=== PATIENT | female | born 2000 | race Two or more races ===

== ENCOUNTER 2020-06-22 14:53 | Outpatient (CLI) | payer SELFPAY ==
[2020-06-22 15:50] LABS: APPEARANCE,URINE SLIGHTLY-CLOUDY; BILIRUBIN,URINE NEGATIVE (NEGATIVE); COLOR,URINE YELLOW; GLUCOSE, URINE NEGATIVE (NEGATIVE); KETONES,URINE NEGATIVE (NEGATIVE); LEUKOCYTE ESTERASE,URINE NEGATIVE (NEGATIVE); NITRITE,URINE NEGATIVE (NEGATIVE); PROTEIN,URINE NEGATIVE (NEGATIVE); URINE SPECIFIC GRAVITY 1.004; UROBILINOGEN,URINE NEGATIVE mg/dL (<2.0)
[2020-06-22 16:06] LABS: URINE AMPHETAMINES SCREEN NEGATIVE; URINE BARBITURATES SCREEN NEGATIVE; URINE BENZODIAZEPINES SCREEN NEGATIVE; URINE COCAINE SCREEN NEGATIVE; URINE MARIJUANA (THC) SCREEN NEGATIVE; URINE METHADONE SCREEN NEGATIVE; URINE PHENCYCLIDINE SCREEN NEGATIVE
--- NOTE | 2020-06-22 16:25 | Non Stress Test Report ---
Non Stress Test Datetime Report Generated by CPN: 06/22/2020 16:24 DEMOGRAPHIC EGA NST: 39.0 INDICATION Indication for Study (NST) Other: ctx MONITORING Monitor Explained: Monitor Explained; Test Explained; Patient Verbalized Understanding Time on Monitor: 06/22/2020 15:25 Time off Monitor: 06/22/2020 16:23 NST Duration: 58 NST INTERVENTIONS NST Interventions: Reposition Patient Physician Notified NST: Dr. Austen BABY A: [id number] BABY A Movement : Present Contraction Frequency : irregular FHR Baseline : 145 Accelerations : 15X15 Decelerations : None Variability : Moderate 6-25bpm NST Review: Meets Criteria for Reactive NST NST Review and Verified By : Zenaida Banks RN NST Results: Reactive NST REPORT Report Trigger: Send Report
[2020-06-22] MEDS ORDERED: HYDROXYZINE PAMOATE 50 MG CAPSULE PO ONE (16:43)
[2020-06-22] MEDS ORDERED: HYDROXYZINE PAMOATE 50 MG CAPSULE ONE (16:45)
== END 2020-06-22 17:00 | disposition home or self-care (01) ==
LOC: EDSTATUS 15:02 → LC 15:07
PROVIDERS: ATTEND Obstetrics & Gynecology
DX: O47.1 False labor at or after 37 completed weeks of gestation (principal); Z3A.39 39 weeks gestation of pregnancy
CPT/HCPCS: 59025; 80307; 81005

== ENCOUNTER 2020-06-23 01:43 | Inpatient (IN) | payer SELFPAY ==
[2020-06-23 02:33] LABS: APPEARANCE,URINE CLEAR; BILIRUBIN,URINE NEGATIVE (NEGATIVE); COLOR,URINE STRAW; GLUCOSE, URINE NEGATIVE (NEGATIVE); KETONES,URINE NEGATIVE (NEGATIVE); LEUKOCYTE ESTERASE,URINE NEGATIVE (NEGATIVE); NITRITE,URINE NEGATIVE (NEGATIVE); PROTEIN,URINE 30 mg/dL (NEGATIVE); URINE SPECIFIC GRAVITY 1.006; UROBILINOGEN,URINE NEGATIVE mg/dL (<2.0)
[2020-06-23 02:48] LABS: URINE AMPHETAMINES SCREEN NEGATIVE; URINE BARBITURATES SCREEN NEGATIVE; URINE BENZODIAZEPINES SCREEN NEGATIVE; URINE COCAINE SCREEN NEGATIVE; URINE MARIJUANA (THC) SCREEN NEGATIVE; URINE METHADONE SCREEN NEGATIVE; URINE PHENCYCLIDINE SCREEN NEGATIVE
[2020-06-23] MEDS ORDERED: MISOPROSTOL 0.2 MG TABLET ONE (03:23)
[2020-06-23] MEDS ORDERED: EPHEDRINE SULFATE INJ 50 MG/1 ML AMPULE ONE (03:23)
[2020-06-23] MEDS ORDERED: OXYTOCIN 10 UNIT/ML VIAL ONE (03:23)
[2020-06-23] MEDS ORDERED: OXYTOCIN/0.9 % SODIUM CHLORIDE 30 UNIT/500 ML RTUINJ ONE ×2 (03:24→10:37)
[2020-06-23] MEDS ORDERED: FENTANYL/BUPIVACAINE/NS/PF 300 MCG/150 ML RTUINJ EPI ONE (03:24)
[2020-06-23] MEDS ORDERED: LIDOCAINE 1% INJ-PF (10 MG/ML) 30 ML SDV ONE (03:24)
[2020-06-23] MEDS ORDERED: ROPIVACAINE HCL 0.2% INJ/PF (2 MG/ML) 20 ML SDV ONE (03:24)
[2020-06-23] MEDS: RINGERS SOLUTION,LACTATED 1,000 ML IV PRN ×2 (03:30→04:17)
[2020-06-23 03:31] LABS: ABSOLUTE LYMPHOCYTES (AUTO) 1.1 10^3/uL (0.5-4.7); ABSOLUTE MONOCYTES (AUTO) 0.6 10^3/uL (0.1-1.4); ABSOLUTE NEUT (AUTO) 10.7 10^3/uL (1.7-8.2); BASOPHILS % (AUTO) 0.2 % (0-2); EOSINOPHILS % (AUTO) 0.1 % (0-6); HEMATOCRIT 38.1 % (36.0-47.0); HEMOGLOBIN 12.8 g/dL (12.0-15.5); LYMPHOCYTES % (AUTO) 8.9 % (13-45); MEAN CORPUSCULAR HEMOGLOBIN 29.2 pg (27.0-33.4); MEAN CORPUSCULAR HGB CONC 33.6 g/dL (32.0-36.0); MEAN CORPUSCULAR VOLUME 87 fl (80-97); PLATELET COUNT 204 10^3/uL (150-450); RED BLOOD COUNT 4.37 10^6/uL (3.72-5.28); RED CELL DISTRIBUTION WIDTH 14.8 % (11.5-14.0); SEGMENTED NEUTROPHILS % (AUTO) 85.8 % (42-78); TOTAL CELLS COUNTED % (AUTO) 100 %; WHITE BLOOD COUNT 12.5 10^3/uL (4.0-10.5)
--- NOTE | 2020-06-23 07:05 | Admission Physical ---
Datetime Report Generated by CPN: 06/23/2020 07:05 CURRENT ADMISSION Chief Complaint: Uterine Contractions Indication for Induction: Not Applicable Admit Impression : Term, Intrauterine ; Active Labor Admit Plan: Admit to Unit; Initiate Labor Protocol ALLERGIES Medication Allergies: No Medication Allergies: No Known Allergies (06/23/2020) Latex: No Latex Allergies Food Allergies: n/a Environmental Allergies: n/a OBSTETRICAL HISTORY EDC: 06/29/2020 00:00 : 1 Para: 0 Term: 0 : 0 SAB: 0 IAB: 0 Ectopic: 0 Livin Cesareans: 0 VBACs: 0 Multiple Births: 0 Gestational Diabetes: No Rh Sensitization: No Incompetent Cervix: No RASHAD: No Infertility: No ART Treatment: No Uterine Anomaly: No IUGR: No Hx Previous C/S: No Macrosomia: No Hx Loss/Stillborn: No PIH: No Hx : No Placenta Previa/Abruption: No Depression/PP Depression: No PTL/PROM: No Post Hemorrhage: No Current Procedures: Ultrasound Obstetrical History Comments: G1- current SEE RECORDS Alcohol: No Marijuana : No Cocaine: No Other Illicit Drugs: No Cigarettes: Never Smoker. 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 Heart Disease: No Hosp/Surgery: No Autoimmune Disorder: No Anesthetic Complications: No Kidney Disease: No Abnormal Pap Smear: No Neuro/Epilepsy: No Psychiatric Disorders: No Other Medical Diseases: No Hepatitis/Liver Disease: No Significant Family History: No Varicosities/Phlebitis: No Trauma/Violence : No Thyroid Dysfunction: No INFECTIOUS HISTORY Gonorrhea: No Genital Herpes: No Chlamydia: No Tuberculosis: No Syphilis: No Hepatitis: No HIV/AIDS Exposure: No HPV: No PHYSICAL EXAM General: Normal HEENT: Normal Neurologic: Normal Thyroid: Normal Heart: Normal Lungs: Normal Breast: Normal Back: Normal Abdomen: Normal Genitourinary Exam: Normal Extremities: Normal DTRs: Normal Pelvic Type: Adequate Vital Signs: Reviewed; Within Normal Limits VAGINAL EXAM Dilatation: 8 Effacement: 90 Station: -1 MEMBRANES Pooling: Negative Membranes: Intact FETUS A EGA: 39.1 Monitoring: External US FHR- Baseline: 150 Variability: Moderate 6-25bpm Accelerations: 15X15 Decelerations: None FHR Category: Category I Estimated Weight (gm): 3500 Presentation: Vertex PLANS FOR LABOR AND DELIVERY Labor and Delivery: None Pain Management: Natural; Medications; Epidural Other Pain Management Plans: pt states that she doesn't know yet Feeding Preference: Both Benefit of Breast Feed Discussed: Yes Circumcision: N/A INFORMED CONSENT Signature: with User ID: [email or web address]
[2020-06-23] MEDS ORDERED: AMPICILLIN SOD/SULBACTAM 3 GM VIAL ONE (09:33)
[2020-06-23] MEDS ORDERED: TRANEXAMIC ACID INJ/PF 1,000 MG/10 ML SDV ONE (09:44)
[2020-06-23] MEDS ORDERED: DIPH/PERTUSS(ACELL)/TETANUS VAC/PF 0.5 ML SYR (>=10YO) IM PRN (09:55)
[2020-06-23] MEDS ORDERED: BENZOCAINE/MENTHOL AEROSOL SPRAY 56 ML TOP PRN (09:55)
[2020-06-23] MEDS ORDERED: MAGNESIUM HYDROXIDE SUSP 30 ML UDCUP PO PRN (09:55)
[2020-06-23] MEDS ORDERED: ACETAMINOPHEN WITH CODEINE #3 TABLET PO PRN ×2 (09:55)
[2020-06-23] MEDS ORDERED: DIBUCAINE 1% OINTMENT 28 GM TP PRN (09:55)
[2020-06-23] MEDS ORDERED: PSEUDOEPHEDRINE HCL 30 MG TABLET PO PRN (09:55)
[2020-06-23] MEDS ORDERED: ACETAMINOPHEN 650 MG SUPP.RECT PR PRN (09:55)
[2020-06-23] MEDS ORDERED: PROMETHAZINE HCL 25 MG TABLET PO PRN (09:55)
[2020-06-23] MEDS ORDERED: PROMETHAZINE HCL INJ 25 MG/1 ML VIAL IV PRN (09:55)
[2020-06-23] MEDS ORDERED: PROMETHAZINE HCL 25 MG SUPP.RECT PR PRN (09:55)
[2020-06-23] MEDS ORDERED: MEASLES,MUMPS&RUBELLA VACC/PF 0.5 ML VIAL SUBCUT PRN (09:55)
[2020-06-23] MEDS ORDERED: DIPHENHYDRAMINE HCL 25 MG CAPSULE PO PRN (09:55)
[2020-06-23] MEDS ORDERED: ACETAMINOPHEN 325 MG TABLET PO PRN (09:55)
[2020-06-23] MEDS ORDERED: ZOLPIDEM TARTRATE 5 MG TABLET PO PRN (09:55)
[2020-06-23] MEDS ORDERED: OXYTOCIN/0.9 % SODIUM CHLORIDE 30 UNIT/500 ML RTUINJ IV PRN (09:55)
[2020-06-23] MEDS ORDERED: NA PHOS,M-B/NA PHOS,DI-BA (ADULT) 133 ML ENEMA PR PRN (09:55)
[2020-06-23] MEDS ORDERED: GLYCERIN/WITCH HAZEL LEAF 1 EACH MED..WIPE TP PRN (09:55)
[2020-06-23] MEDS ORDERED: AMPICILLIN SOD/SULBACTAM 3 GM VIAL IV SCH (10:00)
[2020-06-23] MEDS ORDERED: TRANEXAMIC ACID INJ/PF 1,000 MG/10 ML SDV IV ONE (10:00)
[2020-06-23] MEDS ORDERED: IBUPROFEN 800 MG TABLET ONE (10:29)
[2020-06-23] MEDS: FAMOTIDINE 20 MG TABLET PO SCH ×2 (11:03→21:42)
--- NOTE | 2020-06-23 11:27 | Birth Certificate Data ---
Cert Data Datetime Report Generated by CPN: 06/23/2020 11:26 CERTIFICATE DATA Delivery Provider: Marry Boyce MD (06/22/2020 15:05:Helene Banks RN) 47b. Date of First Visit: 11/30/2019 00:00 (06/22/2020 15:05:Sarita Baker RN) 47c. Date of Last Visit: 06/14/2020 00:00 (06/22/2020 15:05:Sartia Baker RN) 47d. Number of Visits: 10 (06/22/2020 15:05:Sarita Baker RN) 48a. Number of Prev Live Births: 0 (06/22/2020 15:05:Sarita Baker RN) 48b. Now Livin (06/22/2020 15:05:Sarita Baker RN) 48c. Live Births Now : 0 (06/22/2020 15:05:QS system process) 48e. Losses: 0 (06/22/2020 15:05:Sarita Baker RN) RISK FACTORS IN THIS 49a. Diabetes: No (06/22/2020 15:05:Helene Banks RN) 49b. Hypertension: Yes (06/22/2020 15:05:Helene Banks RN) 49c. Previous Births: 0 (06/22/2020 15:05:Sarita Baker RN) 49d. Stillborns: No (06/22/2020 15:05:Sarita Baker RN) 49d. IUGR: No (06/22/2020 15:05:Helene Banks RN) 49e. Infertility Treatment: No (06/22/2020 15:05:Helene Banks RN) 49f. Previous Cesareans: 0 (06/22/2020 15:05:Sarita Baker RN) Mother's Height 50b. Height Inches: 63 (06/23/2020 03:28:QS system process) Mother's Weight 51b. Weight at Delivery (lbs): 154 (06/23/2020 03:28:QS system process) 52. Dt Last Normal Menses Began: 09/23/2019 00:00 (06/22/2020 15:05:Sarita Baker RN) Infections Present/Treated 53a. Gonorrhea: No (06/22/2020 15:05:Helene Banks RN) Results this Hospital Visit : Negative (06/22/2020 15:05:Sarita Baker RN) 53b. Syphilis: No (06/22/2020 15:05:Helene Banks RN) 53c. Chlamydia: No (06/22/2020 15:05:Helene Banks RN) Results this Hospital Visit: Negative (06/22/2020 15:05:Sarita Baker RN) 53d. Hepatitis B: No (06/22/2020 15:05:Helene Banks RN) Results this Hospital Visit: Negative (06/22/2020 15:05:Sarita Baker RN) 53e. Hepatitis C: Negative (06/22/2020 15:05:Sarita Baker RN) 53h. Mother Tested for HBsAG: Yes (06/22/2020 15:05:Sarita Baker RN) 53i. Date Tested: 01/15/2020 00:00 (06/22/2020 15:05:Sarita Baker RN) 53j. Test Result: Negative (06/22/2020 15:05:Sarita Baker RN) Obstetric Procedures 54a, b, c. Obstetric Procedures: Ultrasound (06/22/2020 15:05:Sarita Baker RN) Cigarette Smoking Cigarette Smoking: Never Smoker. [id number] (06/22/2020 15:05:Sarita Baker RN) Onset of Labor 56a. PROM >12 Hrs: 2.28 (06/22/2020 15:05:QS system process) 56b. Precipitous Labor <3 Hrs: 18 (06/22/2020 15:05:QS system process) 56c. Prolonged Labor > 20 Hrs: 18 (06/22/2020 15:05:QS system process) 57a. Induction of Labor: N/A (06/22/2020 15:05:Helene Banks RN) 57c. Non-Vertex Presentation A: Vertex (06/22/2020 15:05:Helene Banks RN) 57d. Steroids - Lung Mat: None (06/22/2020 15:05:Helene Banks RN) 57d. Steroids - Lung Mat: Not Applicable (06/22/2020 15:05:Helene Banks RN) 57g. Moderate/Heavy Meconium: Moderate Meconium (06/23/2020 07:09:Heleen Banks RN) 57h. Intolerance of Labor: N/A (06/22/2020 15:05:Sarita Baker RN) : N/A (06/22/2020 15:05:Sarita Baker RN) 57i. Epidural/Spinal Anesthesia: Epidural (06/22/2020 15:05:Helene Banks RN) Method of Delivery 58a. Forceps - Unsuccessful A: N/A (06/22/2020 15:05:Helene Banks RN) 58b. Vacuum - Unsuccessful A: N/A (06/22/2020 15:05:Helene Banks RN) 58c. Presentation at 58c. Presentation at - A : Vertex (06/22/2020 15:05:Helene Banks RN) 58c. Presentation at - A : N/A (06/22/2020 15:05:Helene Banks RN) 58c. Presentation at - A : Cephalic (06/22/2020 16:36:Helene Banks RN) Final Route and Method of Del 58d. Baby A Route/Delivery: Vaginal (06/22/2020 15:05:Sarita Baker RN) 58e. Trial of Labor Attempted: No (06/22/2020 15:05:Helene Banks RN) 58e. Trial of Labor Attempted A: N/A (06/22/2020 15:05:Helene Banks RN) 58e. Trial of Labor Attempted B: N/A (06/22/2020 15:05:Helene Banks RN) Maternal Morbidity 59b. 3rd or 4th Degree Lacs: Perineal; Vaginal (06/22/2020 15:05:Helene Banks RN) 59b. 3rd or 4th Degree Lacs: Second Degree (06/22/2020 15:05:Helene Banks RN) Birthweight Baby A: 3299 (06/22/2020 15:05:Helene Banks RN) 60a. Pounds : 7 (06/22/2020 15:05:QS system process) 60b. Ounces: 4 (06/22/2020 15:05:QS system process) 61. GA at Delivery Baby A: 39.1 (06/22/2020 15:05:Helene Banks RN) : Full Term- 39- 40.6 Weeks (06/22/2020 15:05:QS system process) 62a. 5 Minute Baby A: 9 (06/22/2020 15:05:QS system process)
--- NOTE | 2020-06-23 11:27 | Delivery Summary ---
Del Sum A-C Datetime Report Generated by CPN: 06/23/2020 11:26 DELIVERY PERSONNEL DELIVERY PERSONNEL: [id number] Delivery Doctor:: Marry Boyce MD Labor and Delivery Nurse:: Helene Banks RN Nursery Nurse:: Thuy Ascencio RN Manager Search/WEAVER APPRENTICE: [facility], FLATWORK ASSEMBLER MATERNAL INFORMATION Delivery Anesthesia: Epidural Medications After Delivery: Pitocin 30 Units in 500ml NS/D5W Estimated Blood Loss (ml): 250 Delivery QBL: 250 Maternal Complications: Chorioamnionitis LABOR SUMMARY EDC: 06/29/2020 00:00 No. Babies in Womb: 1 Attempted: No Labor Anesthesia: Epidural LABOR INFORMATION Reason for Induction: Not Applicable Onset of Labor: 06/22/2020 15:00 Complete Dilatation: 06/23/2020 08:58 Oxytocin: N/A Group B Beta Strep: Negative Antibiotics # of Doses: 1 Name of Antibiotic Given: unasyn Steroids Given: None Reason Steroids Not Administered: Not Applicable MEMBRANES Membranes Rupture Method: Spontaneous Rupture of Membranes: 06/23/2020 07:09 Length of Rupture (hr): 2.28 Amniotic Fluid Color: Moderate Meconium Amniotic Fluid Amount: Small Amniotic Fluid Odor: Normal STAGES OF LABOR Stage 1 hr: 17 Stage 1 min: 58 Stage 2 hr: 0 Stage 2 min: 28 Stage 3 hr: 0 Stage 3 min: 4 Total Time in Labor hr: 18 Total Time in Labor min: 30 VAGINAL DELIVERY Episiotomy: None Laceration #1: Perineal; Vaginal Laceration Extension #1: Second Degree Laceration Repair: Yes Laceration Repair Note: 2-0 chromic in normal fashion Sponge Count Correct: Yes Sharps Count Correct: Yes CSECTION DELIVERY Primary Indication: N/A Secondary Indication: N/A CSection Incidence: N/A Labor: N/A Elective: N/A CSection Incision: N/A BABY A INFORMATION Delivery Date/Time: 06/23/2020 09:26 Method of Delivery: Vaginal Nurse Controlled Delivery: No Born in Route : No : N/A Forceps: N/A Vacuum Extraction: N/A Shoulder Dystocia : No PRESENTATION/POSITION BABY A Presentation: Cephalic Cephalic Presentation: Vertex Vertex Position: Right Occipital Transverse Breech Presentation: N/A PLACENTA INFORMATION BABY A Placenta Delivery Time : 06/23/2020 09:30 Placenta Method of Delivery: Spontaneous Placenta Status: Delivered SCORES BABY A Heart Rate 1 min: >100 bpm Resp Effort 1 min: Good Cry Reflex Irritability 1 min: Cough or Sneeze or Pulls Away Muscle Tone 1 min: Active Motion Color 1 min: Body [place], Extremities Blue Resuscitation Effort 1 min: Tactile Stimulation SCORE 1 MIN: 9 Heart Rate 5 min: >100 bpm Resp Effort 5 min: Good Cry Reflex Irritability 5 min: Cough or Sneeze or Pulls Away Muscle Tone 5 min: Active Motion Color 5 min: Body [place], Extremities Blue Resuscitation Effort 5 min: N/A SCORE 5 MIN: 9 INFANT INFORMATION BABY A Gestational Age at Delivery: 39.1 Gestational Status: Full Term- 39- 40.6 Weeks Outcome : Liveborn Condition : Stable Sex: Female IDENTIFICATION BABY A Verification Date/Time: 06/23/2020 10:19 ID Band Number: [id number] Mother's Name Verified: Yes Infant RN Verifying : Zenaida Banks RN/ M Roel RN WEIGHT/LENGTH BABY A Birthweight (gm): 3299 Weight (lb): 7 Weight (oz): 4 Length (in): 19.50 Infant Length (cm): 49.53 CORD INFORMATION BABY A No. Cord Vessels: 3 Nuchal Cord : Around Neck x1, Tight Cord Blood Taken: Yes-For Eval (Mom's Blood Type - or O+) Infant Suction: None ASSESSMENT BABY A Infant Complications: Meconium Physical Findings at Delivery: Within Normal Limits Infant Respirations: Appears Normal Skin to Skin: Yes Property Officer/ALS Called : No Care By: Levy Ascencio, RN Transferred To: Remains with Mother BABY B INFORMATION : N/A SIGNATURES Signature: with User ID: [email or web address]
[2020-06-23] MEDS ORDERED: FERROUS SULFATE 325 MG TABLET PO ONE (11:28)
[2020-06-23] MEDS ORDERED: PRENATAL VITAMIN W DHA CAPSULE PO ONE (11:28)
[2020-06-23] MEDS ORDERED: DOCUSATE SODIUM 100 MG CAPSULE ONE (11:28)
[2020-06-23] MEDS ORDERED: SENNOSIDES/DOCUSATE 8.6-50 MG 1 EACH TABLET ONE (11:28)
[2020-06-23] MEDS: FERROUS SULFATE 325 MG TABLET PO SCH ×2 (11:53→17:53)
[2020-06-23] MEDS: PRENATAL VITAMIN W DHA CAPSULE PO SCH (11:53)
[2020-06-23] MEDS: DOCUSATE SODIUM 100 MG CAPSULE PO SCH ×2 (11:53→17:53)
[2020-06-23] MEDS: SENNOSIDES/DOCUSATE 8.6-50 MG 1 EACH TABLET PO SCH (11:54)
[2020-06-23] MEDS: IBUPROFEN 800 MG TABLET PO SCH ×2 (17:52→21:42)
[2020-06-23] MEDS: AMPICILLIN SOD/SULBACTAM 3 GM VIAL IV SCH (20:14)
[2020-06-24] MEDS: AMPICILLIN SOD/SULBACTAM 3 GM VIAL IV SCH ×3 (03:00→14:32)
[2020-06-24] MEDS: IBUPROFEN 800 MG TABLET PO SCH ×3 (05:12→21:35)
[2020-06-24 06:55] LABS: HEMATOCRIT 28.3 % (36.0-47.0); MEAN CORPUSCULAR HEMOGLOBIN 30.2 pg (27.0-33.4); MEAN CORPUSCULAR HGB CONC 34.2 g/dL (32.0-36.0); MEAN CORPUSCULAR VOLUME 88 fl (80-97); PLATELET COUNT 174 10^3/uL (150-450); RED BLOOD COUNT 3.21 10^6/uL (3.72-5.28); RED CELL DISTRIBUTION WIDTH 15.4 % (11.5-14.0); WHITE BLOOD COUNT 9.5 10^3/uL (4.0-10.5)
[2020-06-24 07:00] LABS: HEMOGLOBIN 9.7 g/dL (12.0-15.5)
[2020-06-24] MEDS: SENNOSIDES/DOCUSATE 8.6-50 MG 1 EACH TABLET PO SCH (09:53)
[2020-06-24] MEDS: DOCUSATE SODIUM 100 MG CAPSULE PO SCH ×2 (09:53→17:27)
[2020-06-24] MEDS: PRENATAL VITAMIN W DHA CAPSULE PO SCH (09:54)
[2020-06-24] MEDS: FAMOTIDINE 20 MG TABLET PO SCH ×2 (09:54→21:35)
[2020-06-24] MEDS: FERROUS SULFATE 325 MG TABLET PO SCH ×2 (09:54→17:27)
--- NOTE | 2020-06-24 10:00 | PDOC PROGRESS REPORT ---
Subjective-OB Progress Note for:: 06/24/20 - PP day #1, doing well, no complaints, llanos catheter remains in place, draining. O+, breast and bottle feeding, Hx Unasyn x 24 hours. O+, Rubella immune Physical Exam (OB) Vital Signs: Temp Pulse Resp BP Pulse Ox 98.3 F 71 20 114/54 L 100 06/24/20 05:12 06/24/20 05:12 06/24/20 05:12 06/24/20 05:12 06/24/20 05:12 Intake & Output 06/23/20 06/24/20 06/25/20 06:59 06:59 06:59 Intake Total 98 1500 Output Total 4150 Balance 98 -2650 Weight 70.4 kg - General General Appearance: Appears well, Alert - PIH/Pre-Eclampsia Clonus: Negative Headache: Absent Epigastric Pain: No Visual Changes: No - Maternal Morbidity 59. Maternal Morbidity (serious complications experinced by the mother associated with labor and delivery: None of the above - Lochia Lochia Amount: Small 10-25 ml Lochia Color: Rubra/Red - Abdomen Description: Soft, Round Hernia Present: No Fundal Description: Firm, Midline Fundal Height: u/u - u/2 - Respiratory Respiratory Status: No respiratory distress - Abdominal Distension: No distension Tenderness: Nontender - Genitourinary Genitourinary Note: llanos cath in place - Extremities Upper extremity: Normal inspection Lower extremities: Normal inspection - Neurological Cognition: Normal Orientation: AAOx4 - Psychological Associated symptoms: Normal affect, Normal mood - Skin Skin Temperature: Warm Skin Moisture: Dry Objective-Diagnostic Laboratory: 06/24/20 06:35 06/24/20 06:35 WBC 9.5 RBC 3.21 L Hgb 9.7 L D Hct 28.3 L MCV 88 MCH 30.2 MCHC 34.2 RDW 15.4 H Plt Count 174 Assessment and Plan(PN) - Assessment and Plan (1) (normal spontaneous vaginal delivery) Is this a current diagnosis for this admission?: Yes (2) Obstetric vaginal laceration with second degree perineal laceration Is this a current diagnosis for this admission?: Yes (3) Chorioamnionitis, delivered, current hospitalization Is this a current diagnosis for this admission?: Yes Plan:: Routine PP orders, ambulation encouraged - Time Spent with Patient Time with patient: Less than 15 minutes Medications reviewed and adjusted accordingly: Yes - Disposition Anticipated Discharge Disposition: Home, Self Care Anticipated Discharge Timeframe: within 24 hours
[2020-06-25] MEDS: IBUPROFEN 800 MG TABLET PO SCH (05:09)
[2020-06-25] MEDS: DOCUSATE SODIUM 100 MG CAPSULE PO SCH (09:56)
[2020-06-25] MEDS: SENNOSIDES/DOCUSATE 8.6-50 MG 1 EACH TABLET PO SCH (09:56)
[2020-06-25] MEDS: FAMOTIDINE 20 MG TABLET PO SCH (09:56)
[2020-06-25] MEDS: PRENATAL VITAMIN W DHA CAPSULE PO SCH (09:57)
[2020-06-25] MEDS: FERROUS SULFATE 325 MG TABLET PO SCH (09:57)
--- NOTE | 2020-06-25 10:42 | PDOC DISCHARGE SUMMARY ---
Impression - Admit/DC Date/PCP Admission Date/Primary Care Provider: 06/23/20 03:16 Discharge Date: 06/25/20 - Discharge Diagnosis (1) Active labor at term Is this a current diagnosis for this admission?: Yes (2) Chorioamnionitis, delivered, current hospitalization Is this a current diagnosis for this admission?: Yes (3) (normal spontaneous vaginal delivery) Is this a current diagnosis for this admission?: Yes (4) Obstetric vaginal laceration with second degree perineal laceration Is this a current diagnosis for this admission?: Yes - Additional Information Discharge Diet: Regular Discharge Activity: Balance Activity w/Rest, Pelvic Rest Prescriptions: Ibuprofen [Motrin 800 mg Tablet] 800 mg PO Q8HP PRN #90 tablet PRN Reason: Home Medications: Vits96/Iron Fum/Folic [ Tablet] 1 tab PO DAILY 06/22/20 Ibuprofen [Motrin 800 mg Tablet] 800 mg PO Q8HP PRN #90 tablet 06/25/20 Hospital Course 59. Maternal Morbidity (serious complications experinced by the mother associated with labor and delivery: None of the above Results Laboratory Results: WBC 9.5 10^3/uL (4.0-10.5) 06/24/20 06:35 RBC 3.21 10^6/uL (3.72-5.28) L 06/24/20 06:35 Hgb 9.7 g/dL (12.0-15.5) L D 06/24/20 06:35 Hct 28.3 % (36.0-47.0) L 06/24/20 06:35 MCV 88 fl (80-97) 06/24/20 06:35 MCH 30.2 pg (27.0-33.4) 06/24/20 06:35 MCHC 34.2 g/dL (32.0-36.0) 06/24/20 06:35 RDW 15.4 % (11.5-14.0) H 06/24/20 06:35 Plt Count 174 10^3/uL (150-450) 06/24/20 06:35 Lymph % (Auto) 8.9 % (13-45) L 06/23/20 03:18 [place] % (Auto) 5.0 % (3-13) 06/23/20 03:18 Eos % (Auto) 0.1 % (0-6) 06/23/20 03:18 Baso % (Auto) 0.2 % (0-2) 06/23/20 03:18 Absolute Neuts (auto) 10.7 10^3/uL (1.7-8.2) H 06/23/20 03:18 Absolute Lymphs (auto) 1.1 10^3/uL (0.5-4.7) 06/23/20 03:18 Absolute Monos (auto) 0.6 10^3/uL (0.1-1.4) 06/23/20 03:18 Absolute Eos (auto) 0.0 10^3/uL (0.0-0.6) 06/23/20 03:18 Absolute Basos (auto) 0.0 10^3/uL (0.0-0.2) 06/23/20 03:18 Seg Neutrophils % 85.8 % (42-78) H 06/23/20 03:18 Urine Color STRAW 06/23/20 01:50 Urine Appearance CLEAR 06/23/20 01:50 Urine pH 7.0 (5.0-9.0) 06/23/20 01:50 Ur Specific [place] 1.006 06/23/20 01:50 Urine Protein 30 mg/dL (NEGATIVE) H 06/23/20 01:50 Urine Glucose (UA) NEGATIVE mg/dL (NEGATIVE) 06/23/20 01:50 Urine Ketones NEGATIVE mg/dL (NEGATIVE) 06/23/20 01:50 Urine Blood SMALL (NEGATIVE) H 06/23/20 01:50 Urine Nitrite NEGATIVE (NEGATIVE) 06/23/20 01:50 Urine Bilirubin NEGATIVE (NEGATIVE) 06/23/20 01:50 Urine Urobilinogen NEGATIVE mg/dL (<2.0) 06/23/20 01:50 Ur Leukocyte Esterase NEGATIVE (NEGATIVE) 06/23/20 01:50 Urine Ascorbic Acid NEGATIVE (NEGATIVE) 06/23/20 01:50 Urine Opiates Screen NEGATIVE 06/23/20 01:50 Urine Methadone Screen NEGATIVE 06/23/20 01:50 Ur Barbiturates Screen NEGATIVE 06/23/20 01:50 Ur Phencyclidine Scrn NEGATIVE 06/23/20 01:50 Ur Amphetamines Screen NEGATIVE 06/23/20 01:50 U Benzodiazepines Scrn NEGATIVE 06/23/20 01:50 Urine Cocaine Screen NEGATIVE 06/23/20 01:50 U Marijuana (THC) Screen NEGATIVE 06/23/20 01:50 RPR NONREACTIVE (NONREACTIVE) 06/23/20 03:18 Blood Type O POSITIVE 06/23/20 03:18 Antibody Screen NEGATIVE 06/23/20 03:18 Plan Plan of Treatment: follow up in [address] [facility] for post check
[2020-06-25 12:41] VITALS: BP 126/76
== END 2020-06-25 14:05 | disposition home or self-care (01) | DRG 807 ==
LOC: LC 01:43 → LR 03:16 → 2S 13:45
PROVIDERS: ADMIT Obstetrics & Gynecology; ATTEND Obstetrics & Gynecology
PROC: 10E0XZZ Delivery of Products of Conception, External Approach (ICD-10-PCS; principal; 2020-06-23)
PROC: 0KQM0ZZ Repair Perineum Muscle, Open Approach (ICD-10-PCS; 2020-06-23)
DX: O41.1230 Chorioamnionitis, third trimester, not applicable or unspecified (principal); Z37.0 Single live birth; O70.1 Second degree perineal laceration during delivery; O69.1XX0 Labor and delivery complicated by cord around neck, with compression, not applicable or unspecified; Z20.828 Contact with and (suspected) exposure to other viral communicable diseases; Z3A.39 39 weeks gestation of pregnancy
CPT/HCPCS: 1967; 36415; 80307; 81005; 85025; 85027; 86592; 86850; 86900; 86901; 87070; 87077; 87186; 87205; 88307; 94760; J0295; J2590; J2795; J3010; J3490